=== PATIENT | male | born 1990 | race Hispanic/Latino ===

== ENCOUNTER 2017-05-15 12:27 | Emergency (ER) | payer BC, OTHER | END 2017-05-15 13:22 | disposition home or self-care (01) | LOC: EDH 12:27 | DX: R19.7 Diarrhea, unspecified (principal); R10.30 Lower abdominal pain, unspecified; Z88.0 Allergy status to penicillin ==

== ENCOUNTER 2017-06-09 23:12 | Emergency (ER) | payer BC ==
[2017-06-09] MEDS ORDERED: DEXAMETHASONE SOD PHOSPHATE 4 MG/ML 1ML VIAL ONE (23:36)
== END 2017-06-09 23:46 | disposition home or self-care (01) ==
LOC: EDH 23:12
DX: J30.9 Allergic rhinitis, unspecified (principal); R55 Syncope and collapse; B34.9 Viral infection, unspecified; Z88.0 Allergy status to penicillin
CPT/HCPCS: 93005; 96372; 99283; J1100

== ENCOUNTER 2019-03-04 18:59 | Emergency (ER) | payer BC ==
[2019-03-04] MEDS ORDERED: KETOROLAC TROMETHAMINE 60 MG/2 ML VIAL ONE (19:17)
== END 2019-03-04 20:26 | disposition home or self-care (01) ==
LOC: EDH 18:59
DX: S43.491A Other sprain of right shoulder joint, initial encounter (principal); Z88.0 Allergy status to penicillin; Z72.0 Tobacco use; W18.39XA Other fall on same level, initial encounter; Y93.01 Activity, walking, marching and hiking; Y92.098 Other place in other non-institutional residence as the place of occurrence of the external cause; Y99.8 Other external cause status
CPT/HCPCS: 73030; 96372; 99283; J1885

== ENCOUNTER 2019-07-17 21:15 | Emergency (ER) | payer BC, OTHER ==
[2019-07-17] MEDS ORDERED: SODIUM CHLORIDE 0.9% 1000ML 2,000 ML IV ONE (22:28)
[2019-07-17] MEDS ORDERED: INSULIN HUMULIN R 100 UNIT/ML 3ML ONE (22:29)
[2019-07-17] MEDS ORDERED: KETOROLAC TROMETHAMINE 30MG/ML ONE (22:46)
[2019-07-18] MEDS ORDERED: METFORMIN HCL 500 MG TABLET ONE (00:28)
== END 2019-07-18 00:53 | disposition home or self-care (01) ==
LOC: EDH 21:15
DX: E86.9 Volume depletion, unspecified (principal); R73.9 Hyperglycemia, unspecified; M54.9 Dorsalgia, unspecified; Z90.49 Acquired absence of other specified parts of digestive tract; Z88.0 Allergy status to penicillin
CPT/HCPCS: 36415; 71046; 74176; 80053; 81001; 82948; 83690; 85025; 96361; 96374; 96375; 99285; J1815; J1885; J7030

== ENCOUNTER 2019-10-10 09:35 | Emergency (ER) | payer SELFPAY ==
[2019-10-10] MEDS ORDERED: ONDANSETRON HCL 4 MG/2 ML VIAL ONE (10:11)
[2019-10-10] MEDS ORDERED: KETOROLAC TROMETHAMINE 30MG/ML ONE (10:12)
== END 2019-10-10 10:49 | disposition home or self-care (01) ==
LOC: EDH 09:35
DX: R10.9 Unspecified abdominal pain (principal); M79.18 Myalgia, other site; E11.9 Type 2 diabetes mellitus without complications; Z90.49 Acquired absence of other specified parts of digestive tract; Z87.891 Personal history of nicotine dependence; Z88.0 Allergy status to penicillin
CPT/HCPCS: 36415; 80048; 80076; 80305; 81003; 82550; 83690; 85025; 96374; 96375; 99284; J1885; J2405

== ENCOUNTER 2020-06-05 19:03 | Emergency (ER) | payer OTHER ==
[2020-06-05] MEDS ORDERED: KETOROLAC TROMETHAMINE 30MG/ML ONE (19:27)
[2020-06-05 19:42] LABS: BASOPHILS % (AUTO) 0.6 % (0.0-5.0); EOSINOPHILS % (AUTO) 1.4 % (0.0-8.0); HEMATOCRIT 43.3 % (42-54); LYMPHOCYTES % (AUTO) 17.3 % (21.0-51.0); MEAN CORPUSCULAR HEMOGLOBIN 31.9 pg (27.0-33.0); MEAN CORPUSCULAR HGB CONC 36.7 g/dL (32.0-36.0); MEAN CORPUSCULAR VOLUME 86.8 fL (79-99); MONOCYTES % (AUTO) 13.3 % (3.0-13.0); PLATELET COUNT (AUTO) 208 K/uL (130-400); RED BLOOD CELL COUNT(AUTO) 4.99 MIL/uL (4.50-6.20); WHITE BLOOD COUNT (AUTO) 5.1 K/uL (4.8-10.8)
[2020-06-05 19:54] LABS: CARBON DIOXIDE 26 mmol/L (21-32); CHLORIDE 101 mmol/L (101-111); GLOMERULAR FILTR. RATE CALC 93 mL/min (>60); GLUCOSE,RANDOM 188 mg/dL (70-105); POTASSIUM 3.7 mmol/L (3.5-5.1); SODIUM SERUM 137 mmol/L (136-145); UREA NITROGEN, BLOOD 10 mg/dL (7-18)
[2020-06-05 19:56] LABS: INR 1.02 (0.85-1.15); PROTHROMBIN TIME 11.1 SEC (9.6-11.6)
[2020-06-05 19:57] LABS: PARTIAL THROMBOPLASTIN TIME 25.6 SEC (26.3-35.5)
[2020-06-05 20:05] LABS: ALANINE AMINOTRANSFERASE 89 U/L (12-78); ALBUMIN 3.6 g/dL (3.5-5.0); ASPARTATE AMINOTRANSFERASE 51 U/L (10-37); BILIRUBIN,TOTAL 0.4 mg/dL (0.2-1.0); CREATINE KINASE, TOTAL 70 U/L (21-232); MYOGLOBIN 26 ng/mL (10-92); TOTAL PROTEIN, SERUM 7.6 g/dL (6.0-8.3); TROPONIN I < 0.04 ng/mL (0.00-0.06)
[2020-06-05] MEDS ORDERED: MORPHINE SULFATE 2 MG/ML 1ML SYG ONE (20:40)
[2020-06-05 21:59] LABS: APPEARANCE,URINE Clear (CLEAR); BILIRUBIN,URINE Negative (NEGATIVE); COLOR,URINE Yellow (YELLOW); GLUCOSE, URINE (UA) Negative (NEGATIVE); KETONES,URINE Trace mg/dL (NEGATIVE); LEUKOCYTE ESTERASE ,URINE Negative (NEGATIVE); NITRATE,URINE Negative (NEGATIVE); OCCULT BLOOD,URINE Negative (NEGATIVE); PH,URINE 6.5 (5.0-8.0); PROTEIN,URINE Negative (NEGATIVE)
== END 2020-06-05 23:18 | disposition home or self-care (01) ==
LOC: EDH 19:03
DX: B34.9 Viral infection, unspecified (principal); E11.649 Type 2 diabetes mellitus with hypoglycemia without coma; Z20.822 Contact with and (suspected) exposure to COVID-19; Z88.0 Allergy status to penicillin
CPT/HCPCS: 36415; 71045; 80053; 81003; 82550; 83605; 83874; 84145; 84484; 85025; 85610; 85730; 87040 ×2; 87077; 87088; 87186; 87426; 87804 ×2; 93005; 96361; 96374; 96375; 99285; J1885; U0003

== ENCOUNTER 2020-10-29 20:07 | Emergency (ER) | payer OTHER, SELFPAY ==
[~2020-10-29] VITALS: Ht 177.8 cm; Wt 126.1 kg
[2020-10-29 20:44] VITALS: BP 165/100
[2020-10-29 21:33] LABS: APPEARANCE,URINE Clear (CLEAR); BILIRUBIN,URINE Negative (NEGATIVE); COLOR,URINE Yellow (YELLOW); GLUCOSE, URINE (UA) >=1000 mg/dL (NEGATIVE); KETONES,URINE Negative (NEGATIVE); LEUKOCYTE ESTERASE ,URINE Negative (NEGATIVE); NITRATE,URINE Negative (NEGATIVE); OCCULT BLOOD,URINE Negative (NEGATIVE); PH,URINE 5.5 (5.0-8.0); PROTEIN,URINE Negative (NEGATIVE); UROBILINOGEN,URINE 0.2 mg/dL (0.2-1.0)
[2020-10-29 21:45] VITALS: BP 136/83
[2020-10-29 22:35] VITALS: BP 140/88
[2020-10-29] MEDS ORDERED: GUAI5SYR PO (22:48)
[2020-10-29] MEDS ORDERED: IBUP-2070 PO (22:48)
[2020-10-29] MEDS ORDERED: PSEU120T62 PO (22:48)
[2020-10-29] MEDS ORDERED: AZIT250T9 PO (22:48)
[2020-10-29 23:48] VITALS: BP 147/90
== END 2020-10-30 00:45 | disposition home or self-care (01) ==
LOC: EDH 20:07
DX: U07.1 COVID-19 (principal); E11.9 Type 2 diabetes mellitus without complications; Z88.0 Allergy status to penicillin; Z79.899 Other long term (current) drug therapy; Z90.89 Acquired absence of other organs
CPT/HCPCS: 71046; 81003; 87635; 87804 ×2; 99285; C9803

== ENCOUNTER → 2020-11-29 03:18 | Emergency (ER) | payer SELFPAY ==
[~2020-11-29 03:18] MED LIST: AZIT250T9 PO; GUAI5SYR PO; IBUP-2070 PO; PSEU120T62 PO
== END | disposition left against medical advice (07) ==
LOC: EDH 03:18
DX: R73.9 Hyperglycemia, unspecified (principal); Z53.21 Procedure and treatment not carried out due to patient leaving prior to being seen by health care provider

== ENCOUNTER 2022-02-19 11:06 | Emergency (ER) | payer OTHER ==
[~2022-02-19] VITALS: Ht 177.8 cm; Wt 124.7 kg
[2022-02-19] MEDS ORDERED: GUAI120015 PO (15:50)
[2022-02-19] MEDS ORDERED: D-ME118S47 PO (15:50)
[2022-02-19 16:01] VITALS: BP 151/90
== END 2022-02-19 16:20 | disposition home or self-care (01) ==
LOC: EDH 11:06
DX: U07.1 COVID-19 (principal); B34.9 Viral infection, unspecified; E11.9 Type 2 diabetes mellitus without complications; Z90.89 Acquired absence of other organs; Z88.0 Allergy status to penicillin
CPT/HCPCS: 99284; 71045; 87635; 87804 ×2; C9803

== ENCOUNTER → 2023-08-24 | Outpatient (CLI) | payer BC ==
[~2023-08-24] MED LIST changes: +BROM118S48 PO; +GUAI120015 PO
== END | disposition home or self-care (01) ==
LOC: RAH 13:50
PROVIDERS: ATTEND Student in an Organized Health Care Education/Training Program
DX: S92.232A Displaced fracture of intermediate cuneiform of left foot, initial encounter for closed fracture (principal); S92.252A Displaced fracture of navicular [scaphoid] of left foot, initial encounter for closed fracture; M25.475 Effusion, left foot; X58.XXXA Exposure to other specified factors, initial encounter; Y93.89 Activity, other specified; Y92.89 Other specified places as the place of occurrence of the external cause; Y99.8 Other external cause status
CPT/HCPCS: 73700

== ENCOUNTER 2023-08-31 07:12 | Day surgery (SDC) | payer BC ==
[2023-08-30 14:38] VITALS: BP 150/90; PULSE 63; RESP 16
[2023-08-30 15:06] LABS: BASOPHILS # (AUTO) 0.03 K/uL (0.00-0.20); BASOPHILS % (AUTO) 0.4 % (0.0-5.0); EOSINOPHILS # (AUTO) 0.25 K/uL (0.00-0.70); EOSINOPHILS % (AUTO) 3.6 % (0.0-8.0); HEMATOCRIT 44.9 % (42-54); IMMATURE GRANULOCYTE ABSOLUTE 0.02 K/uL (0-1); LYMPHOCYTES % (AUTO) 29.6 % (21.0-51.0); MEAN CORPUSCULAR HEMOGLOBIN 32.1 pg (27.0-33.0); MEAN CORPUSCULAR HGB CONC 35.6 g/dL (32.0-36.0); MEAN CORPUSCULAR VOLUME 90.2 fL (79-99); MONOCYTES # (AUTO) 0.6 K/uL (0.1-1.0); MONOCYTES % (AUTO) 8.7 % (3.0-13.0); NEUTROPHILS # (AUTO) 3.9 K/uL (1.8-7.7); NEUTROPHILS % (AUTO) 57.4 % (40.0-77.0); PLATELET COUNT (AUTO) 262 K/uL (130-400); RED BLOOD CELL COUNT(AUTO) 4.98 MIL/uL (4.50-6.20); RED CELL DISTRIBUTION WIDTH 13.1 % (11.0-15.5); WHITE BLOOD COUNT (AUTO) 6.9 K/uL (4.8-10.8)
[2023-08-30 15:13] LABS: CREATININE 0.8 mg/dL (0.5-1.3); POTASSIUM 3.6 mmol/L (3.5-5.1)
[2023-08-30 15:16] LABS: PROTHROMBIN TIME 10.8 SEC (9.6-11.6)
[2023-08-30 15:17] LABS: PARTIAL THROMBOPLASTIN TIME 26.2 SEC (26.3-35.5)
[~2023-08-31] VITALS: Ht 175.3 cm; Wt 122.5 kg
[2023-08-31] VITALS (18 sets, daily range): BP systolic 126–158; BP diastolic 63–80; PULSE 67–89; RESP 14–19
[~2023-08-31 07:12] MED LIST changes: +ACET-2079 PO; -AZIT250T9 PO; -BROM118S48 PO; -GUAI120015 PO; -GUAI5SYR PO; -IBUP-2070 PO; +LISI2.5T13 PO; -PSEU120T62 PO; +ROSU5TAB43 PO; +SEMA0.258 SQ
[2023-08-31] MEDS: CLINDAMYCIN IVPB 900MG/50ML 50 ML IV ONE (08:42)
[2023-08-31] MEDS: 0.9%NACL 1000ML 1,000 ML IV ONE (08:42)
[2023-08-31] MEDS: CEFAZOLIN SODIUM 2 GM VIAL ONE (08:42)
[2023-08-31] MEDS: CEFAZOLIN SODIUM 1 GM VIAL ONE (08:42)
[2023-08-31] MEDS ORDERED: ACETAMINOPHEN 1,000 MG/100 ML VIAL IV ONE (09:03)
[2023-08-31] MEDS ORDERED: FAMOTIDINE 20MG VIAL IV ONE (09:04)
[2023-08-31] MEDS ORDERED: ROPIVACAINE 0.5% 5MG/ML 30ML ONE (09:09)
[2023-08-31] MEDS ORDERED: LIDOCAINE PF 100MG/5ML (2%) SYRINGE 5ML ONE (09:13)
[2023-08-31] MEDS ORDERED: SUCCINYLCHOLINE CHLORIDE 20 MG/ML 10 ML VIAL ONE (09:13)
[2023-08-31] MEDS ORDERED: FENTANYL CITRATE PF 50 MCG/1 ML 2ML VIAL ONE (09:14)
[2023-08-31] MEDS ORDERED: PROPOFOL 10 MG/ML 20ML VIAL IV ONE (09:14)
[2023-08-31] MEDS ORDERED: ROCURONIUM BROMIDE 10MG/1ML 5ML VL ONE ×2 (09:14→12:29)
[2023-08-31] MEDS ORDERED: DEXAMETHASONE SOD PHOSPHATE 10MG/ML 1ML VIAL ONE (10:24)
[2023-08-31] MEDS ORDERED: ONDANSETRON 4MG INJ ONE (10:24)
[2023-08-31] MEDS ORDERED: KETAMINE 50MG/ML SYRINGE 50 MG/ML DISP.SYRIN ONE (10:43)
[2023-08-31] MEDS ORDERED: METOPROLOL TARTRATE 1 MG/ML 5ML VIAL IV ONE (11:06)
[2023-08-31] MEDS: ROPIVACAINE 0.5% 5MG/ML 30ML IJ ONE ×2 (11:08→12:38)
[2023-08-31] MEDS ORDERED: GLYCOPYRROLATE 0.2 MG/ML 5 ML VIAL ONE (12:41)
[2023-08-31] MEDS ORDERED: NEOSTIGMINE METHYLSULFATE 1MG/ML IV ONE (12:41)
[2023-08-31] MEDS ORDERED: HYDR-4060 PO (13:20)
[2023-08-31] MEDS: MEPERIDINE-PF 25 MG/ML SYG ONE (13:37)
[2023-08-31] MEDS: HYDROCODONE/ACETAMINOPHEN 5/325 MG TAB PO ONE (15:01)
== END 2023-08-31 15:10 | disposition home or self-care (01) ==
LOC: DAH 07:12
PROVIDERS: ATTEND Student in an Organized Health Care Education/Training Program
DX: S93.325A Dislocation of tarsometatarsal joint of left foot, initial encounter (principal); S92.242A Displaced fracture of medial cuneiform of left foot, initial encounter for closed fracture; M79.672 Pain in left foot; I10 Essential (primary) hypertension; E78.5 Hyperlipidemia, unspecified; E11.9 Type 2 diabetes mellitus without complications; E03.9 Hypothyroidism, unspecified; X58.XXXA Exposure to other specified factors, initial encounter; Y93.89 Activity, other specified; Y92.89 Other specified places as the place of occurrence of the external cause; Y99.8 Other external cause status
CPT/HCPCS: 80048; 85025; 85610; 85730; 36415; 28615; 82948 ×2; 73620; A4223 ×2; C1713; A4663; J7120; Q4050; A4649 ×3; J3490 ×7; J3010; J1100; J0330; J7030; J2001; J2704; J2405; J2710; J2175; J2795 ×2; A4930; A4215; A4222; A4221; A6450; J0690